=== PATIENT | male | born 1960 | race Caucasian/White ===

== ENCOUNTER → 2017-02-22 | Outpatient (CLI) | payer OTHER ==
[~2017-02-22] MED LIST: DEPAKOTE500 MG PO; DESYREL50 MG PO; DILANTIN 100 M100 MG PO; DUONEB 2.5-0.5 M3 ML IH; EFFEXOR XR37.5 MG PO; EQUATE ALLERGY OR; GLUCOPHAGE500 MG PO; IBUPROFEN 200200 M1 PO; LISINOPRIL10 MG PO; LORTAB 7.5/5001 TA3 PO; NASAREL25 ML NS; PAMELOR25 MG PO; PREDNISONE 10 M10 M1 PO; PROPRANOLOL 8080 M1 PO; PROPRANOLOL HC160 MG PO; PROVENTIL HFA6.7 G1 INH; REMERON 30 MG T30 MG PO
== END ==
LOC: RAD 02-21 15:36
DX: R06.00 Dyspnea, unspecified (principal)

== ENCOUNTER → 2017-08-16 | Outpatient (CLI) | payer OTHER | LOC: CAT 09:26 | DX: C14.0 Malignant neoplasm of pharynx, unspecified (principal); J44.9 Chronic obstructive pulmonary disease, unspecified ==